=== PATIENT | male | born 1950 | race Caucasian/White ===

== ENCOUNTER → 2025-02-28 12:39 | Outpatient (CLI) | payer MEDICARE, SELFPAY ==
[2025-02-28 13:22] LABS: Add Manual Diff / Slide Review NO; Hematocrit 47.8 % (41-53); Hemoglobin 15.8 g/dL (13.5-17.5); Lymphocytes Absolute Auto 2100 /uL (1100-4500); Mean Corpuscular HGB Conc 33.0 % (30-36); Mean Corpuscular Hemoglobin 27.0 PG (26-34); Mean Corpuscular Volume 81.6 fL (80-100); Platelet Count 207 X10^3/uL (150-400)
[2025-02-28 13:43] LABS: Alanine Aminotransferase 21 IU/L (<50); Albumin 4.9 g/dL (3.5-5.0); Albumin Globulin Ratio 1.3 (1.0-2.8); Alkaline Phosphatase 74 U/L (38-126); Blood Urea Nitrogen 16 mg/dL (9-20); Calcium 10.9 mg/dL (8.4-10.2); Carbon Dioxide 25 mmol/L (22-32); Chloride 105 mmol/L (98-107); Cholesterol 273 mg/dL (140-199); Estimated Glomerular Filt Rate > 60 mL/min (>60); Globulin 3.8 g/dL (1.7-4.1); Glucose 97 mg/dL (70-99); HDL Cholesterol 50 mg/dL (40-60); HEMOLYSIS < 15 (0-50); Potassium 4.6 mmol/L (3.4-5.1); Sodium 140 mmol/L (137-145); Total Protein 8.7 g/dL (6.3-8.2); Triglycerides 168 mg/dL (35-150)
[2025-02-28 13:44] LABS: Appearance Urine UA CLEAR; Bilirubin Urine UA NEGATIVE (NEGATIVE); Color Urine UA YELLOW; Glucose Urine UA NEGATIVE (Negative); Ketones Urine UA NEGATIVE (NEGATIVE); Leukocyte Esterase Urine UA NEGATIVE (NEGATIVE); Nitrite Urine UA NEGATIVE (Negative); Occult Blood Urine UA NEGATIVE (Negative); Protein Urine UA TRACE (Negative); Specific Gravity Urine UA 1.015 (1.000-1.035); Urobilinogen Urine UA 0.2 E.U./dL (0.2); pH Urine UA 6.5 (4.5-8.0)
[2025-02-28 13:50] LABS: Culture Indicated Urine Cult Not Indicated
== END ==
PROVIDERS: PCP Family Medicine; Referring Provider Family Medicine; Visit Provider Family Medicine
DX: M1A.9XX0 Chronic gout, unspecified, without tophus (tophi) (principal); Z96.643 Presence of artificial hip joint, bilateral; I10 Essential (primary) hypertension; Z90.79 Acquired absence of other genital organ(s); Z68.30 Body mass index [BMI] 30.0-30.9, adult; R10.A2 Flank pain, left side
CPT/HCPCS: 80053; 80061; 81001; 85025